=== PATIENT | male | born 1940 | race Caucasian/White ===

== ENCOUNTER 2016-12-20 08:46 | Day surgery (SDC) | payer BC, MEDICARE, OTHER ==
[~2016-12-20] VITALS: Ht 175.3 cm; Wt 139.7 kg
[~2016-12-20 08:46] MED LIST: BYSTOLIC10 MG PO; CHEST CONGESTI400 MG PO; COMBIVENT RESPIM4 GM INH; ELIQUIS5 MG PO; FISH OIL1 GM PO; KLOR-CON M2020 MEQ PO; LASIX20 MG PO; LASIX40 MG PO; LIPITOR80 MG PO; MIRALAX17 GM PO; NORVASC5 MG PO; SENNA-S TABLET1 EACH PO; SPIRIVA18 MCG INH; SYMBICORT 160-4.6 GM INH; ZYLOPRIM300 MG PO
== END 2016-12-20 11:50 | disposition short-term general hospital (02) ==
LOC: SURGOP 08:46
PROC: 0DBE8ZZ Excision of Large Intestine, Via Natural or Artificial Opening Endoscopic (ICD-10-PCS; principal; 2016-12-20)
DX: Z12.11 Encounter for screening for malignant neoplasm of colon (principal); D12.6 Benign neoplasm of colon, unspecified; K57.30 Diverticulosis of large intestine without perforation or abscess without bleeding; I48.91 Unspecified atrial fibrillation; I11.0 Hypertensive heart disease with heart failure; I50.9 Heart failure, unspecified; M10.9 Gout, unspecified; E66.01 Morbid (severe) obesity due to excess calories; Z87.891 Personal history of nicotine dependence; Z80.0 Family history of malignant neoplasm of digestive organs; Z88.8 Allergy status to other drugs, medicaments and biological substances; Z79.01 Long term (current) use of anticoagulants; Z79.899 Other long term (current) drug therapy; Z90.89 Acquired absence of other organs; Z98.890 Other specified postprocedural states
CPT/HCPCS: J2175; J2250

== ENCOUNTER → 2017-03-19 | Outpatient (CLI) | payer BC, MEDICARE, OTHER | END | disposition short-term general hospital (02) | LOC: CLPULM 01:05 | DX: J44.9 Chronic obstructive pulmonary disease, unspecified (principal); J96.11 Chronic respiratory failure with hypoxia; E66.2 Morbid (severe) obesity with alveolar hypoventilation; I48.91 Unspecified atrial fibrillation; I27.2 Other secondary pulmonary hypertension; M10.9 Gout, unspecified; E78.5 Hyperlipidemia, unspecified; I87.8 Other specified disorders of veins; N40.0 Benign prostatic hyperplasia without lower urinary tract symptoms; I11.0 Hypertensive heart disease with heart failure; I50.9 Heart failure, unspecified; Z86.19 Personal history of other infectious and parasitic diseases ==